=== PATIENT | female | born 1965 ===

== ENCOUNTER 2016-10-17 15:08 | Emergency (ER) | payer BC, OTHER ==
[2016-10-17 15:08] VITALS: BMI 39.9
[2016-10-17 16:02] VITALS: TEMP 98.6; O2SAT 99
--- NOTE | 2016-10-17 16:12 | ED PDOC ---
Arrival/HPI - General Historian: Patient - General Chief Complaint: Lower Extremity Problem/Injury Time Seen by Provider: 10/17/16 16:09 - History of Present Illness Narrative History of Present Illness (Text): 10/17/16 16:10 50yo female who present with complaint of pain from her knee to proximal lower leg. States pain started weeks ago, but became worse recently. Pain is worse with weight bearing. Did not take any medication fo pain. Denies trauma, SOB, chest pain, recent travel, recent surgery, redness, any other complaint. (Kyle Palacio) Past Medical History - Provider Review Nursing Documentation Reviewed: Yes - Past History Past History: Non-Contributing - Infectious Disease Hx of Infectious Diseases: None - Tetanus Immunization Tetanus Immunization: Unknown - Reproductive Menopause: No - Past Medical History Past Medical History: No Previous - Cardiac Hx Cardiac Disorders: Yes - Pulmonary Hx Respiratory Disorders: No - Neurological Hx Neurological Disorder: No - HEENT Hx HEENT Disorder: No - Renal Hx Renal Disorder: No - Endocrine/Metabolic Hx Endocrine Disorders: No - Hematological/Oncological Hx Blood Disorders: Yes Hx Anemia: Yes - Integumentary Hx Dermatological Disorder: No - Musculoskeletal/Rheumatological Hx Musculoskeletal Disorders: Yes Hx Falls: No Hx Rheumatoid Arthritis: Yes - Gastrointestinal Hx Gastrointestinal Disorders: Yes Hx Gastroesophageal Reflux: Yes - Genitourinary/Gynecological Hx Genitourinary Disorders: No - Psychiatric Hx Psychophysiologic Disorder: No Hx Depression: No Hx Emotional Abuse: No Hx Physical Abuse: No Hx Substance Use: No - Surgical History Hx Cholecystectomy: Yes Hx Musculoskeletal Surgery: Yes (right leg) - Anesthesia Hx Anesthesia: Yes Hx Anesthesia Reactions: No Hx Malignant Hyperthermia: No - Suicidal Assessment Feels Threatened In Home Enviroment: No Family/Social History - Physician Review Nursing Documentation Reviewed: Yes Family/Social History: Unknown Family HX Smoking Status: Never Smoked Hx Alcohol Use: No Hx Substance Use: No Hx Substance Use Treatment: No Allergies/Home Meds Allergies/Adverse Reactions: Allergies No Known Allergies Allergy (Verified 06/21/16 14:08) Review of Systems - Physician Review All systems were reviewed & negative as marked: Yes - Review of Systems Constitutional: Normal Eyes: Normal ENT: Normal Respiratory: Normal Cardiovascular: Normal Gastrointestinal: Normal Genitourinary Female: Normal Musculoskeletal: Arthralgias (Left knee/leg pain) Skin: Normal Neurological: Normal Endocrine: Normal Hemo/Lymphatic: Normal Psychiatric: Normal Physical Exam Vital Signs Reviewed: Yes Temperature: Afebrile Blood Pressure: Normal Pulse: Regular Respiratory Rate: Normal Appearance: Positive for: Well-Appearing, Non-Toxic, Comfortable Pain Distress: None Mental Status: Positive for: Alert and Oriented X 3 - Systems Exam Head: Present: Atraumatic, Normocephalic Pupils: Present: PERRL Extroacular Muscles: Present: EOMI Conjunctiva: Present: Normal Mouth: Present: Moist Mucous Membranes Neck: Present: Normal Range of Motion Respiratory/Chest: Present: Clear to Auscultation, Good Air Exchange. No: Respiratory Distress, Accessory Muscle Use Cardiovascular: Present: Regular Rate and Rhythm, Normal S1, S2. No: Murmurs Abdomen: Present: Normal Bowel Sounds. No: Tenderness, Distention, Peritoneal Signs Back: Present: Normal Inspection Upper Extremity: Present: Normal Inspection. No: Cyanosis, Edema Lower Extremity: Present: CALF TENDERNESS (Left leg), NORMAL PULSES, Normal ROM , Tenderness (Medial left knee and proximal lower leg), Neurovascularly Intact, Capillary Refill < 2 s. No: Edema, Cyanosis, Swelling, Erythema, Deformity, Temperature Abnormalties Neurological: Present: GCS=15, CN II-XII Intact, Speech Normal Skin: Present: Warm, Dry, Normal Color. No: Rashes Psychiatric: Present: Alert, Oriented x 3, Normal Insight, Normal Concentration Vital Signs Temp Pulse Resp BP Pulse Ox 10/17/16 18:00 76 18 120/77 99 10/17/16 15:58 98.6 F 77 16 115/69 99 Medical Decision Making ED Course and Treatment: I was available for consultation during PA evaluation. The chart was reviewed by me, and I agree with disposition. The documented history was done by the physician aerial applicator pilot. The documented physical exam was done by the physician aerial applicator pilot. The documented procedures were done by the physician aerial applicator pilot. ( Yeison Gilbert) 10/17/16 17:45 PT in ED for stated history. She was ambulatory with slight limp in ED. Review of patient's chart show that she was seen here in ED October and June of last year for same complaint. US and Knee was negative at that time. On further questioning, pt notes that her pain is chronic was was worse for the past 2days. Per US tech - Doppler is negative for DVT Left knee xray - No acute finding. Result was DW the patient. Her pain improved in ED on re evaluation with medication. She was DC home with Naprosyn and referred to Ortho. TRT ED for any new or worsening symptoms. (Kyle Palacio) - RAD Interpretation Radiology Orders: 10/17/16 16:09 KNEE LEFT 2 VIEWS (AP & LAT) [RAD] Stat DUPLEX LOWER EXTRM VEIN LEFT [US] Stat - Medication Orders Current Medication Orders: Discontinued Medications Ketorolac Tromethamine (Toradol) 60 mg IM STAT STA Stop: 10/17/16 16:13 Last Admin: 10/17/16 16:30 Dose: 60 MG IM Administration Charges Document 10/17/16 16:30 SZA (Rec: 10/17/16 17:19 SZA [id number]) Injection Site MAR Injection Site Right Gluteus Medius Charges for Administration # of IM Administrations 1 Disposition/Present on Arrival - Present on Arrival Any Indicators Present on Arrival: No History of DVT/PE: No History of Uncontrolled Diabetes: No Urinary Catheter: No History of Decub. Ulcer: No History Surgical Site Infection Following: None - Disposition Have Diagnosis and Disposition been Completed?: Yes Disposition Time: 17:55 Patient Plan: Discharge - Disposition Diagnosis: Knee pain Disposition: HOME/ ROUTINE Condition: STABLE Discharge Instructions (ExitCare): Knee Pain (ED) Print Language: OCCITAN Additional Instructions: Follow up with orthopedist Return to ED for any new or worsening symptoms Prescriptions: Naproxen [Naprosyn] 500 mg PO BID #20 tablet traMADol [Ultram] 50 mg PO Q6 #9 tab Referrals: Suhail Fraser DO [Staff Provider] - Follow up with primary [facility] [place] [Outside] - Follow up with primary
--- NOTE | 2016-10-17 17:51 | US ---
PROCEDURE: Left lower extremity venous US HISTORY: Leg pain and swelling. Evaluate for DVT. PHYSICIAN(S): Arcenio Pisano MD. TECHNIQUE: Duplex sonography and color-flow Doppler with graded compression were used to evaluate the deep venous system of the left lower extremity. FINDINGS: The visualized deep venous system of the left lower extremity is sonographically normal and compressible. Normal wave forms and augmentation are seen. There is no sonographic evidence for deep venous thrombosis in the visualized segments of the left lower extremity. IMPRESSION: 1. No sonographic evidence for deep venous thrombosis in the visualized segments of the left lower extremity.
[2016-10-17 19:14] VITALS: BP 120/77; PULSE 76; RESP 18
--- NOTE | 2016-10-18 09:22 | RAD ---
PROCEDURE: Left Knee Radiographs. HISTORY: Pain. COMPARISON: None. FINDINGS: BONES: Normal. No fracture. JOINTS: Normal. No osteoarthritis. JOINT EFFUSION: None. OTHER FINDINGS: None. IMPRESSION: Normal radiographs of the left knee.
== END 2016-10-17 18:20 | disposition home or self-care (01) ==
LOC: ED 15:08
DX: M25.562 Pain in left knee (principal)
CPT/HCPCS: 73560; 93971; 96372; 99284; J1885

== ENCOUNTER 2018-07-19 06:48 | Emergency (ER) | payer BC, OTHER ==
[2018-07-19 06:59] VITALS: BMI 34.0
[2018-07-19 07:02] VITALS: RESP 18; TEMP 98; O2SAT 98
[2018-07-19] MEDS ORDERED: DiphenhydrAMINE 50 mg/ml Inj IVP STA (08:12)
[2018-07-19] MEDS ORDERED: Sodium Chloride 0.9% 1,000 ML IV STA (08:27)
--- NOTE | 2018-07-19 09:00 | ED PDOC ---
Arrival/HPI - General Chief Complaint: Flu-like Symptoms Time Seen by Provider: 07/19/18 07:05 Historian: Patient - History of Present Illness Narrative History of Present Illness (Text): 07/19/18 07:50 52 y/o F, with past medical history of RA (diagnosed in 2012) and currently not on any medication, presents to the ED for evaluation of rash to bilateral groin and to left sided neck since past 4 days. Patient reports flu-like symptoms including subjective fever and generalized myalgias since past week and informs symptomatic care with NyQuil at home. Patient informs sudden onset of rash to her bilateral groin Monday which progressively worsened over time associated with itchiness and warmth. Patient reports taking Benadryl without any improvement to symptoms. Patient denies any recent changes in diet or clothing. Patient denies any recent sick contact or any recent travel. Patient denies any nausea, vomiting, diarrhea, abdominal pain, chest pain, shortness of breath, dysuria, urinary output changes, neck pain, back pain, headache, dizziness or any other complaints. Patient denies having the flu shot this year. Time/Duration: < week Symptom Onset: Gradual Symptom Course: Unchanged Activities at Onset: Light Context: Home Past Medical History - Provider Review Nursing Documentation Reviewed: Yes - Past History Past History: Non-Contributing - Infectious Disease Hx of Infectious Diseases: None - Tetanus Immunization Tetanus Immunization: Unknown - Past Medical History Past Medical History: No Previous - Cardiac Hx Cardiac Disorders: Yes - Pulmonary Hx Respiratory Disorders: No - Neurological Hx Neurological Disorder: No - HEENT Hx HEENT Disorder: No - Renal Hx Renal Disorder: No - Endocrine/Metabolic Hx Endocrine Disorders: No - Hematological/Oncological Hx Blood Disorders: Yes Hx Anemia: Yes - Integumentary Hx Dermatological Disorder: No - Musculoskeletal/Rheumatological Hx Musculoskeletal Disorders: Yes Hx Falls: No Hx Rheumatoid Arthritis: Yes - Gastrointestinal Hx Gastrointestinal Disorders: Yes Hx Gastroesophageal Reflux: Yes - Genitourinary/Gynecological Hx Genitourinary Disorders: No - Psychiatric Hx Psychophysiologic Disorder: No Hx Depression: No Hx Emotional Abuse: No Hx Physical Abuse: No Hx Substance Use: No - Surgical History Hx Cholecystectomy: Yes Hx Musculoskeletal Surgery: Yes (right leg) - Anesthesia Hx Anesthesia: Yes Hx Anesthesia Reactions: No Hx Malignant Hyperthermia: No - Suicidal Assessment Feels Threatened In Home Enviroment: No Family/Social History - Physician Review Nursing Documentation Reviewed: Yes Family/Social History: No Known Family HX Smoking Status: Never Smoked Hx Alcohol Use: No Hx Substance Use: No Hx Substance Use Treatment: No Allergies/Home Meds Allergies/Adverse Reactions: Allergies No Known Allergies Allergy (Verified 07/19/18 06:59) Review of Systems - Physician Review All systems were reviewed & negative as marked: Yes - Review of Systems Constitutional: Fevers Respiratory: absent: SOB, Cough Cardiovascular: absent: Chest Pain Gastrointestinal: absent: Abdominal Pain, Diarrhea, Nausea, Vomiting Genitourinary Female: absent: Dysuria, Urine Output Changes Musculoskeletal: Myalgias. absent: Back Pain, Neck Pain Skin: Rash Neurological: absent: Headache, Dizziness Endocrine: absent: Polyuria Psychiatric: absent: Anxiety Physical Exam Vital Signs Reviewed: Yes Vital Signs Temp Pulse Resp BP Pulse Ox 07/19/18 06:59 98.0 F 78 18 157/84 H 98 Temperature: Afebrile Blood Pressure: Normal Pulse: Regular Respiratory Rate: Normal Appearance: Positive for: Well-Appearing, Non-Toxic, Comfortable Pain Distress: None Mental Status: Positive for: Alert and Oriented X 3 - Systems Exam Head: Present: Atraumatic, Normocephalic Pupils: Present: PERRL Extroacular Muscles: Present: EOMI Conjunctiva: Present: Normal Mouth: Present: Moist Mucous Membranes Neck: Present: Normal Range of Motion. No: Meningeal Signs Respiratory/Chest: Present: Clear to Auscultation, Good Air Exchange. No: Respiratory Distress, Accessory Muscle Use Cardiovascular: Present: Regular Rate and Rhythm, Normal S1, S2. No: Murmurs Abdomen: No: Tenderness, Distention, Peritoneal Signs Back: Present: Normal Inspection Upper Extremity: Present: Normal Inspection. No: Cyanosis, Edema Lower Extremity: Present: Normal Inspection. No: Edema Neurological: Present: GCS=15, CN II-XII Intact, Speech Normal Skin: Present: Warm, Dry, Rashes (Blanching urticarial rash noted to groin bilaterally and to left side of the neck.), Normal Color Psychiatric: Present: Alert, Oriented x 3, Normal Insight, Normal Concentration Medical Decision Making ED Course and Treatment: 07/19/18 07:50 Impression: 52 year old female presents to the ED for evaluation of rash to the groin bilaterally and to left side of the neck. Differential Diagnosis included but are not limited to: -- Contact dermatitis -- Viral URI -- Shingles -- Pneumonia Plan: -- Labs -- EKG -- Benadryl -- Pepcid -- Solumedrol -- IV Fluids -- Rapid Flu A/B -- Urinalysis -- Reassess and disposition Prior Visits: Notes and results from previous visits were reviewed. Progress Notes: - Medication Orders Current Medication Orders: Sodium Chloride (Sodium Chloride 0.9%) 1,000 mls @ 999 mls/hr IV .Q1H1M STA Stop: 07/19/18 09:27 Discontinued Medications Diphenhydramine HCl (Benadryl) 50 mg IVP STAT STA Stop: 07/19/18 08:13 Famotidine (Pepcid) 20 mg IVP STAT STA Stop: 07/19/18 08:13 Methylprednisolone (Solu-Medrol) 125 mg IVP STAT STA Stop: 07/19/18 08:13 - Scribe Statement The provider has reviewed the documentation as recorded by the Scribe Melvin Arrieta. All medical record entries made by the Scribe were at my direction and personally dictated by me. I have reviewed the chart and agree that the record accurately reflects my personal performance of the history, physical exam, medical decision making, and the department course for this patient. I have also personally directed, reviewed, and agree with the discharge instructions and disposition. Disposition/Present on Arrival - Present on Arrival Any Indicators Present on Arrival: No History of DVT/PE: No History of Uncontrolled Diabetes: No Urinary Catheter: No History of Decub. Ulcer: No History Surgical Site Infection Following: None - Disposition Have Diagnosis and Disposition been Completed?: Yes Diagnosis: Contact dermatitis, Viral URI with cough Disposition: HOME/ ROUTINE Disposition Time: 09:45 Patient Plan: Discharge Condition: IMPROVED Discharge Instructions (ExitCare): Contact Dermatitis (DC), Viral Upper Respiratory Infection, Adult (DC) Print Language: WALLISIAN Additional Instructions: All medical record entries made by the Scribe were at my direction and personally dictated by me. I have reviewed the chart and agree that the record accurately reflects my personal performance of the history, physical exam, medical decision making, and the department course for this patient. I have also personally directed, reviewed, and agree with the discharge instructions and disposition. Please take medications as prescribed Do not operate heavy machinery 4 hours after taking Nyquil or Robatussin Prescriptions: Dextromethorphan HBr [Robitussin Lingering Cold Long-Acting Coughge] 15 mg PO Q8H #20 sgl DiphenhydrAMINE [Benadryl] 50 mg PO Q6H #12 cap Famotidine [Pepcid] 40 mg PO Q6H #10 tablet Methylprednisolone [Medrol Dose Pack (21 tabs)] 4 mg PO DAILY #21 mg Referrals: Maru Mosqueda MD [Medical Doctor] - Follow up with primary [facility] [place]] - Follow up with primary Forms: [employer] ([place])
[2018-07-19 09:32] LABS: PH,URINE 7.5 (4.7-8.0); URINE BILIRUBIN NEGATIVE (NEGATIVE); URINE BLOOD LARGE (NEGATIVE); URINE GLUCOSE (UA) NEGATIVE (NEGATIVE); URINE LEUKOCYTE ESTERASE TRACE Leu/uL (NEGATIVE); URINE PROTEIN NEGATIVE mg/dL (<30 mg/dL); URINE UROBILINOGEN 0.2 E.U./dL (<1 E.U./dL)
[2018-07-19 09:36] LABS: URINE APPEARANCE SL CLOUDY (CLEAR); URINE COLOR YELLOW (YELLOW)
[2018-07-19 09:39] LABS: BASO # 0.03 K/mm3 (0.0-2.0); BASO % 0.6 % (0.0-3.0); EOS # 0.3 (0.0-0.7); EOS % 6.1 % (1.5-5.0); GRAN # 2.65 (1.4-6.5); HEMOGLOBIN 12.4 g/dL (12.0-16.0); LYMPH # 1.8 (1.2-3.4); LYMPH % 35.6 % (22.0-35.0); MEAN CELL VOLUME 86.1 fl (80.0-105.0); MEAN CORPUSCULAR HEMOGLOBIN 27.3 pg (25.0-35.0); MEAN CORPUSCULAR HGB CONC 31.7 g/dl (31.0-37.0); MEAN PLATELET VOLUME 10.1 fl (7.0-11.0); MONO # 0.3 (0.1-0.6); MONO % 5.7 % (1.0-6.0); RBC 4.54 10^6/uL (3.5-6.1); RED CELL DISTRIBUTION WIDTH 14.1 % (11.5-14.5); WHITE BLOOD COUNT 5.1 10^3/uL (4.5-11.0)
[2018-07-19 09:41] LABS: ALB/GLOB RATIO 1.2 (1.1-1.8); ALT/SGPT 31 U/L (7-56); AST/SGOT 31 U/L (14-36); BLOOD UREA NITROGEN 11 mg/dL (7-21); CALCIUM 8.8 mg/dL (8.4-10.5); GFR NON-AFRICAN AMERICAN > 60
[2018-07-19 10:17] VITALS: BP 138/80; PULSE 66
[2018-07-19 10:51] LABS: URINE AMORPHOUS SEDIMENT FEW /hpf; URINE BACTERIA LARGE /hpf; URINE RBC 25 - 30 /hpf (0-2)
--- NOTE | 2018-07-20 09:10 | CARD ---
APPROVED REPORT Date of service: 07/19/2018 EKG Measurement Heart [id number] <Conclusion> Sinus rhythm with premature atrial complexes with aberrant conduction Otherwise normal ECG
== END 2018-07-19 09:51 | disposition home or self-care (01) ==
LOC: ED 06:48 → UNDOADMOB 07:17 → ERH 07:17 → ED 09:51
DX: L25.9 Unspecified contact dermatitis, unspecified cause (principal); J06.9 Acute upper respiratory infection, unspecified
CPT/HCPCS: 80053; 81001; 81025; 85025; 87086; 87804; 93005; 96374; 96375; 99284; J1200; J2930; J7030

== ENCOUNTER 2018-07-25 17:29 | Emergency (ER) | payer OTHER ==
[2018-07-25 17:30] VITALS: BMI 34.0
[2018-07-25 17:57] VITALS: TEMP 98.4; O2SAT 97
[2018-07-25] MEDS ORDERED: Hydrocortisone 2.5% Oint(30 gm) TOP ONE (18:41)
--- NOTE | 2018-07-25 18:45 | ED PDOC ---
Arrival/HPI - General Historian: Patient - History of Present Illness Narrative History of Present Illness (Text): Patient is a 52 yr F with PMH RA who presents with worsening pruritic burning rash over her eyes, neck, abdomen, inguinal region and inner thighs. Patient was seen here in [facility] ED 07/19/18 and given Medrol dose pack and has completed this with no relief. She has also been using an over the counter Benadryl cream with little relief. patient states that rash continues to burn itch and spread. She continues to deny any new detergents face soaps clothing, pets, body wash, hand soap makeup etc. Patient additionally denies SAVAGE, CP, SOB, difficulty breathing, wheezing, mouth swelling, chest pain, abdominal pain, n/v, f/c, stool changes, dysuria and extremity pain/weakness. 07/25/18 19:32 Time/Duration: Prior to Arrival, > week Symptom Onset: Gradual Symptom Course: Worsening Quality: Burning Severity Level: Moderate Activities at Onset: Rest <Blaire Rodriguez - Last Filed: 07/25/18 19:32> <Erma Ashley - Last Filed: 07/25/18 19:49> - General Chief Complaint: Allergic Reaction Time Seen by Provider: 07/25/18 17:32 Past Medical History - Provider Review Nursing Documentation Reviewed: Yes - Past History Past History: Non-Contributing - Infectious Disease Hx of Infectious Diseases: None - Tetanus Immunization Tetanus Immunization: Unknown - Past Medical History Past Medical History: No Previous - Cardiac Hx Cardiac Disorders: No - Pulmonary Hx Respiratory Disorders: No - Neurological Hx Neurological Disorder: No - HEENT Hx HEENT Disorder: No - Renal Hx Renal Disorder: No - Endocrine/Metabolic Hx Endocrine Disorders: No - Hematological/Oncological Hx Blood Disorders: No - Integumentary Hx Dermatological Disorder: No - Musculoskeletal/Rheumatological Hx Musculoskeletal Disorders: Yes Hx Rheumatoid Arthritis: Yes - Gastrointestinal Hx Gastrointestinal Disorders: Yes Hx Gastroesophageal Reflux: Yes - Genitourinary/Gynecological Hx Genitourinary Disorders: No - Psychiatric Hx Psychophysiologic Disorder: No Hx Depression: No Hx Emotional Abuse: No Hx Physical Abuse: No Hx Substance Use: No - Surgical History Hx Cholecystectomy: Yes Hx Musculoskeletal Surgery: Yes (right leg) - Anesthesia Hx Anesthesia: Yes Hx Anesthesia Reactions: No Hx Malignant Hyperthermia: No - Suicidal Assessment Feels Threatened In Home Enviroment: No <Blaire Rodriguez - Last Filed: 07/25/18 19:32> Family/Social History - Physician Review Nursing Documentation Reviewed: Yes Family/Social History: Unknown Family HX Smoking Status: Never Smoked Hx Alcohol Use: No Hx Substance Use: No Hx Substance Use Treatment: No <Blaire Rodriguez - Last Filed: 07/25/18 19:32> Allergies/Home Meds <Blaire Rodriguez - Last Filed: 07/25/18 19:32> <Erma Ashley - Last Filed: 07/25/18 19:49> Allergies/Adverse Reactions: Allergies No Known Allergies Allergy (Verified 07/25/18 18:03) Review of Systems - Physician Review All systems were reviewed & negative as marked: Yes - Review of Systems Constitutional: Normal Eyes: Other (itching) Respiratory: absent: SOB Cardiovascular: Normal. absent: Chest Pain Gastrointestinal: absent: Abdominal Pain, Nausea, Vomiting Musculoskeletal: Normal Skin: Rash, Pruritis Neurological: absent: Headache Endocrine: absent: Diaphoresis <Blaire Rodriguez - Last Filed: 07/25/18 19:32> Physical Exam Vital Signs Temp Pulse Resp BP Pulse Ox 07/25/18 17:56 98.4 F 81 17 159/93 H 97 Temperature: Afebrile Blood Pressure: Hypertensive (mild) Pulse: Regular Respiratory Rate: Normal Appearance: Positive for: Well-Appearing, Non-Toxic, Uncomfortable Pain Distress: Mild Mental Status: Positive for: Alert and Oriented X 3 - Systems Exam Head: Present: Atraumatic, Normocephalic, Other (skin aroun eyes with urticaria, erythema) Extroacular Muscles: Present: EOMI Mouth: Present: Moist Mucous Membranes Neck: Present: Normal Range of Motion Respiratory/Chest: Present: Clear to Auscultation. No: Respiratory Distress, Accessory Muscle Use, Wheezes Cardiovascular: Present: Regular Rate and Rhythm, Normal S1, S2 Abdomen: Present: Other (Urticarial rash over abdomen). No: Tenderness, Distention Upper Extremity: Present: Normal Inspection. No: Cyanosis, Edema Lower Extremity: Present: NORMAL PULSES, Other (urticarial rash over inguinal crease and inner thighs). No: Edema, CALF TENDERNESS Neurological: Present: GCS=15, CN II-XII Intact, Speech Normal Skin: Present: Warm, Dry, Rashes (urticarial rash present around the right eye under the left eye over the abdomen, in the inguinal creases bilaterally and over the medial thighs bilaterally, rash is pruritic) Psychiatric: Present: Alert, Oriented x 3 <Blaire Rodriguez - Last Filed: 07/25/18 19:32> Vital Signs Temp Pulse Resp BP Pulse Ox 07/25/18 19:21 78 18 155/85 H 97 07/25/18 17:56 98.4 F 81 17 159/93 H 97 <Erma Ashley - Last Filed: 07/25/18 19:49> Medical Decision Making ED Course and Treatment: Impression: 52 yr old F with diffuse urticarial rash over her eyes, neck (collar area), abdomen, inguinal region and medial thighs Plan: hydrocortisone cream 2.5% benadryl Dermatology referral reassess and dispo 07/25/18 19:36 <Blaire Rodriguez - Last Filed: 07/25/18 19:32> ED Course and Treatment: 07/25/18 19:48 Patient seen by resident and then evaluated by me. Agree that rash is urticarial with eczema vs contact dermatitis on differential. No respiratory symptoms. So super infection. Well appearing. Given dermatology referral and discharged on higher dose steroids and cream - Medication Orders Current Medication Orders: Discontinued Medications Diphenhydramine HCl (Benadryl) 50 mg PO STAT STA Stop: 07/25/18 18:41 Last Admin: 07/25/18 19:04 Dose: 50 mg Hydrocortisone (Hydrocortisone 2.5%) 0 gm TOP ONCE ONE Stop: 07/25/18 18:42 Last Admin: 07/25/18 19:06 Dose: 1 appful <Erma Ashley - Last Filed: 07/25/18 19:49> Disposition/Present on Arrival - Present on Arrival Any Indicators Present on Arrival: No History of DVT/PE: No History of Uncontrolled Diabetes: No Urinary Catheter: No History of Decub. Ulcer: No History Surgical Site Infection Following: None - Disposition Have Diagnosis and Disposition been Completed?: Yes Disposition Time: 18:51 Patient Plan: Discharge <Blaire Rodriguez - Last Filed: 07/25/18 19:32> <Erma Ashley - Last Filed: 07/25/18 19:49> - Disposition Diagnosis: Contact allergic reaction, Contact dermatitis Disposition: HOME/ ROUTINE Condition: GOOD Discharge Instructions (ExitCare): Contact Dermatitis (DC) Print Language: MOHAWK Additional Instructions: Please call the case resource manager we have referred you to to make an appointment following discarge If you are unable to get an appointment please contact [facility] You have been given prescriptions for Prednisone 50 mg PO daily for rash Hydrocortisone cream 2.5% to be applied to rash If your symptoms worsen or do not improve please return to the nearest ED for further evaluation Prescriptions: RX: Hydrocortisone 2.5% 1 applic TOP BID #1 tube RX: Prednisone 50 mg PO DAILY #5 tablet Referrals: Gabbi Wren MD [Staff Provider] - Follow up with primary Forms: [email or web address] ([place])
[2018-07-25 19:21] VITALS: BP 155/85; PULSE 78; RESP 18
== END 2018-07-25 19:26 | disposition home or self-care (01) ==
LOC: ED 17:29
DX: L25.9 Unspecified contact dermatitis, unspecified cause (principal)

== ENCOUNTER 2018-10-26 15:24 | Emergency (ER) | payer OTHER ==
[2018-10-26 16:06] VITALS: BMI 31.6
[2018-10-26 16:20] VITALS: RESP 18; TEMP 97.7
[2018-10-26] MEDS ORDERED: Oxycodone/Acetaminophen 5/325 mg Tab PO STA (17:23)
--- NOTE | 2018-10-26 18:41 | ED PDOC ---
Arrival/HPI - General Chief Complaint: Rib Injury Time Seen by Provider: 10/26/18 16:05 Historian: Patient - History of Present Illness Narrative History of Present Illness (Text): 10/26/18 18:38 52-year-old female presents today with left-sided rib pain status post fall yesterday. Patient states she was in the park walking her dog tripped and fell landing on the left side injuring her left ribs. Patient states that she had a lot of pain yesterday but thought it would improve today. Patient is complaining of pain over the lateral aspect of the left ribs worse with deep inspiration and movement. Patient denies abdominal pain. No nausea vomiting diarrhea or constipation. Patient states she has been eating and drinking well. Patient denies head injury. Denies pain in the extremities. No medications have been taken at home. Past Medical History - Provider Review Nursing Documentation Reviewed: Yes - Travel History Have you recently traveled outside [place] w/in the past 3 mons?: No - Past History Past History: Non-Contributing - Infectious Disease Hx of Infectious Diseases: None - Tetanus Immunization Tetanus Immunization: Unknown - Reproductive Menopause: Yes - Past Medical History Past Medical History: No Previous - Cardiac Hx Cardiac Disorders: No - Pulmonary Hx Respiratory Disorders: No - Neurological Hx Neurological Disorder: No - HEENT Hx HEENT Disorder: No - Renal Hx Renal Disorder: No - Endocrine/Metabolic Hx Endocrine Disorders: No - Hematological/Oncological Hx Blood Disorders: No - Integumentary Hx Dermatological Disorder: No - Musculoskeletal/Rheumatological Hx Musculoskeletal Disorders: Yes Hx Falls: No Hx Rheumatoid Arthritis: Yes - Gastrointestinal Hx Gastrointestinal Disorders: Yes Hx Gastroesophageal Reflux: Yes - Genitourinary/Gynecological Hx Genitourinary Disorders: No - Psychiatric Hx Psychophysiologic Disorder: No Hx Depression: No Hx Emotional Abuse: No Hx Physical Abuse: No Hx Substance Use: No - Surgical History Hx Cholecystectomy: Yes Hx Musculoskeletal Surgery: Yes (right leg) - Anesthesia Hx Anesthesia: Yes Hx Anesthesia Reactions: No Hx Malignant Hyperthermia: No - Suicidal Assessment Feels Threatened In Home Enviroment: No Family/Social History - Physician Review Nursing Documentation Reviewed: Yes Family/Social History: Unknown Family HX Smoking Status: Never Smoked Hx Alcohol Use: No Hx Substance Use: No Hx Substance Use Treatment: No Allergies/Home Meds Allergies/Adverse Reactions: Allergies No Known Allergies Allergy (Verified 10/26/18 16:20) Review of Systems - Review of Systems Constitutional: absent: Fatigue, Fevers Respiratory: absent: SOB, Cough Cardiovascular: absent: Chest Pain, Palpitations Gastrointestinal: absent: Abdominal Pain, Nausea, Vomiting Genitourinary Female: absent: Dysuria, Frequency, Hematuria Musculoskeletal: Arthralgias (left sided rib pain). absent: Back Pain, Neck Pain Skin: absent: Rash, Pruritis Neurological: absent: Headache, Dizziness Psychiatric: absent: Anxiety, Depression Physical Exam Vital Signs Reviewed: Yes Vital Signs Temp Pulse Resp BP Pulse Ox 10/26/18 16:05 97.7 F 77 18 106/68 100 Temperature: Afebrile Blood Pressure: Normal Pulse: Regular Respiratory Rate: Normal Appearance: Positive for: Well-Appearing, Non-Toxic, Comfortable Pain Distress: None Mental Status: Positive for: Alert and Oriented X 3 - Systems Exam Head: Present: Atraumatic Mouth: Present: Moist Mucous Membranes Nose (Internal): Present: Normal Inspection Neck: Present: Normal Range of Motion, Other (+ left sided trapezius tenderness). No: MIDLINE TENDERNESS Respiratory/Chest: Present: Clear to Auscultation, Good Air Exchange, Tender to Palpation (+ ttp over left lateral ribs; no edema, no erythema; no ecchymosis; no step offs or crepitus). No: Respiratory Distress, Accessory Muscle Use, Wheezes, Retracting, Rhonchi Cardiovascular: Present: Regular Rate and Rhythm Abdomen: Present: Other (no ecchymosis;). No: Tenderness, Distention, Peritoneal Signs, Rebound, Guarding Back: Present: Normal Inspection, Paraspinal Tenderness (+ minimal left sided thoracic paraspinal tenderness and trapezius tenderness). No: CVA Tenderness, Midline Tenderness Upper Extremity: Present: Normal Inspection, Normal ROM Lower Extremity: Present: Normal Inspection, Normal ROM Neurological: Present: GCS=15, Speech Normal, Motor Func Grossly Intact, Normal Sensory Function, Gait Normal Skin: Present: Warm, Dry, Normal Color. No: Rashes Psychiatric: Present: Alert, Oriented x 3 Medical Decision Making ED Course and Treatment: 10/26/18 18:41 Patient is nontoxic well appearing in no distress with stable vital signs. Lungs are clear to auscultation bilaterally. left sided lateral rib pain s/p fall yesterday. PA chest: No fracture and no pneumothorax no effusion. left ribs: No fracture Toradol 60 mg IM given for pain. percocet given for pain Patient reassessment: Patient with slight improvement of pain. Lungs are clear bilaterally, Abdomen is soft nontender nondistended. pt trained on how to use incentive spirometer by respiratory therapist. Advised patient to follow up with the primary care physician within the next 2 days apply ice to the ribs frequently. Motrin every 6 hours as needed for pain and percocet every 6 hours as needed for moderate to severe pain. Advised returning if symptoms worsen persist or if new symptoms develop advised using incentive spirometer as directed. Patient verbalizes understanding of discharge instructions and need for immediate followup. All aspects of this case were discussed the attending of record. Impression: Contusion ribs Motrin every 6 hours as needed for pain Percocet: One tablet every 6 hours as needed for moderate to severe pain: May cause drowsiness Apply ice frequently Followup with primary care physician within the next 2 days Followup with the orthopedist within the next 2 days use incentive spirometer Return if symptoms worsen persist or if new symptoms develop; abdominal pain, nausea/vomiting, worsening pain, fever/chills, shortness of breath or if any other concerning symptoms develop. Reassessment Condition: Re-examined, Improved - RAD Interpretation Radiology Orders: 10/26/18 16:35 RIBS LEFT & PA CHEST [RAD] Stat - Medication Orders Current Medication Orders: Discontinued Medications Ketorolac Tromethamine (Toradol) 60 mg IM STAT STA Stop: 10/26/18 17:24 Last Admin: 10/26/18 18:09 Dose: 60 mg MAR Pain Assessment Document 10/26/18 18:09 MR (Rec: 10/26/18 18:09 MR [id number]) Pain Reassessment Is this a pain reassessment? Yes Sleep Is patient sleeping during reassessment? No Presence of Pain Presence of Pain Yes Pain Scale Used Protocol: PSCALES Pain Scale Used Numeric Location Left, Right or Bilateral Left Pain Location Body Site Neck Arm Hip Description Description Constant Intensity of Pain at present 8 Pain Behavior Guarding Facial Grimacing Aggravating Factors Changing Position Alleviating Factors/Management Medication Techniques IM Administration Charges Document 10/26/18 18:09 (Rec: 10/26/18 18:09 MR [id number]) Injection Site MAR Injection Site Left Deltoid Charges for Administration # of IM Administrations 1 Oxycodone/Acetaminophen (Percocet 5/325 Mg Tab) 1 tab PO STAT STA Stop: 10/26/18 17:24 Last Admin: 10/26/18 18:07 Dose: 1 tab MAR Pain Assessment Document 10/26/18 18:07 (Rec: 10/26/18 18:08 [id number]) Pain Reassessment Is this a pain reassessment? Yes Sleep Is patient sleeping during reassessment? No Presence of Pain Presence of Pain Yes Pain Scale Used Protocol: PSCALES Pain Scale Used Numeric Location Left, Right or Bilateral Left Pain Location Body Site Neck Arm Hip Description Description Constant Intensity of Pain at present 8 Pain Behavior Rubbing Site Facial Grimacing Aggravating Factors Changing Position Alleviating Factors/Management Medication Techniques Disposition/Present on Arrival - Present on Arrival Any Indicators Present on Arrival: No History of DVT/PE: No History of Uncontrolled Diabetes: No Urinary Catheter: No History of Decub. Ulcer: No History Surgical Site Infection Following: None - Disposition Have Diagnosis and Disposition been Completed?: Yes Diagnosis: Rib contusion Disposition: HOME/ ROUTINE Disposition Time: 18:44 Patient Plan: Discharge Condition: GOOD Discharge Instructions (ExitCare): Bruised Rib (DC) Additional Instructions: Motrin every 6 hours as needed for pain Percocet: One tablet every 6 hours as needed for moderate to severe pain: May cause drowsiness Apply ice frequently Followup with primary care physician within the next 2 days Followup with the orthopedist within the next 2 days use incentive spirometer Return if symptoms worsen persist or if new symptoms develop; abdominal pain, nausea/vomiting, worsening pain, fever/chills, shortness of breath or if any other concerning symptoms develop. Prescriptions: Ibuprofen [Motrin] 600 mg PO Q6H PRN #20 tab PRN Reason: pain/fever reduction oxyCODONE/Acetaminophen [Percocet 5/325 mg Tab] 1 tab PO Q6H PRN #10 tab PRN Reason: moderate to severe pain Referrals: Maru Mosqueda MD [Medical Doctor] - Follow up with primary Suhail Fraser DO [Staff Provider] - Follow up with primary [facility] [Outside] - Follow up with primary Forms: [employer] (Japanese), WORK NOTE
[2018-10-26 19:09] VITALS: BP 115/70; PULSE 72; O2SAT 97
--- NOTE | 2018-10-27 09:04 | RAD ---
Date of service: 10/26/2018 PROCEDURE: Radiographs of the Chest and Left Ribs. HISTORY: fall yesterday, left rib pain COMPARISON: Chest radiograph dated 05/11/2014.. TECHNIQUE: Frontal radiograph of the chest and multiple oblique radiographs of the left ribs were obtained. 4 views obtained. FINDINGS: LEFT RIBS: No fracture or focal lesion visualized. LUNGS: Clear. PLEURA: No pneumothorax or pleural fluid. CARDIOVASCULAR: Aortic atherosclerotic calcifications. Cardiomediastinal silhouette stably prominent. OTHER FINDINGS: Right upper quadrant surgical clips. IMPRESSION: Unremarkable radiographs of the chest and left ribs. No left rib fracture.
== END 2018-10-26 19:36 | disposition home or self-care (01) ==
LOC: ED 15:24
DX: S20.219A Contusion of unspecified front wall of thorax, initial encounter (principal); W01.0XXA Fall on same level from slipping, tripping and stumbling without subsequent striking against object, initial encounter; Y93.K1 Activity, walking an animal; Y92.830 Public park as the place of occurrence of the external cause
CPT/HCPCS: 71101; 81025; 96372; 99283; J1885